=== PATIENT | male | born 1985 | race Asian ===

== ENCOUNTER 2016-10-12 16:30 | Emergency (ER) | payer OTHER ==
[2016-10-12] MEDS ORDERED: NORMAL SALINE 1000 ML 1,000 ML IV ONE (17:24)
[2016-10-12 17:52] LABS: ABSOLUTE EOSINOPHILS # (AUTO) 0.1 10^3/uL (0.0-0.6); ABSOLUTE LYMPHOCYTES (AUTO) 1.3 10^3/uL (0.5-4.7); ABSOLUTE MONOCYTES (AUTO) 0.6 10^3/uL (0.1-1.4); ABSOLUTE NEUT (AUTO) 8.5 10^3/uL (1.7-8.2); BASOPHILS % (AUTO) 0.2 % (0-2); EOSINOPHILS % (AUTO) 0.5 % (0-6); HEMATOCRIT 44.6 % (37.9-51.0); HEMOGLOBIN 14.7 g/dL (13.5-17.0); HGB HCT DIFFERENCE -0.5; LYMPHOCYTES % (AUTO) 12.6 % (13-45); MEAN CORPUSCULAR HEMOGLOBIN 27.8 pg (27.0-33.4); MEAN CORPUSCULAR HGB CONC 32.9 g/dL (32.0-36.0); MEAN CORPUSCULAR VOLUME 84 fl (80-97); MONOCYTES % (AUTO) 5.5 % (3-13); RED BLOOD COUNT 5.29 10^6/uL (4.35-5.55); RED CELL DISTRIBUTION WIDTH 13.8 % (11.5-14.0); SEGMENTED NEUTROPHILS % (AUTO) 81.2 % (42-78); WHITE BLOOD COUNT 10.5 10^3/uL (4.0-10.5)
[2016-10-12 18:02] LABS: ALANINE AMINOTRANSFERASE 27 U/L (21-72); ALBUMIN 4.6 g/dL (3.5-5.0); ALCOHOL 21 mg/dL (NONE DETECTED); ALKALINE PHOSPHATASE 44 U/L (38-126); ANION GAP 16 (5-19); ASPARTATE AMINO TRANSFERASE 18 U/L (17-59); BILIRUBIN,DIRECT 0.3 mg/dL (0.0-0.4); BILIRUBIN,TOTAL 0.4 mg/dL (0.2-1.3); BLOOD UREA NITROGEN 16 mg/dL (7-20); CALCIUM 9.7 mg/dL (8.4-10.2); CARBON DIOXIDE 22 mmol/L (22-30); CHLORIDE 105 mmol/L (98-107); CREATININE RESULT 1.05 mg/dL (0.52-1.25); GLUCOSE 107 mg/dL (75-110); MAGNESIUM 1.9 mg/dL (1.6-2.3); POTASSIUM 4.3 mmol/L (3.6-5.0); SODIUM 142.9 mmol/L (137-145); TOTAL PROTEIN 7.2 g/dL (6.3-8.2)
[2016-10-12 18:29] LABS: APPEARANCE,URINE CLEAR; BILIRUBIN,URINE NEGATIVE (NEGATIVE); GLUCOSE, URINE NEGATIVE (NEGATIVE); KETONES,URINE NEGATIVE (NEGATIVE); LEUKOCYTE ESTERASE,URINE NEGATIVE (NEGATIVE); NITRITE,URINE NEGATIVE (NEGATIVE); PROTEIN,URINE NEGATIVE (NEGATIVE); URINE SPECIFIC GRAVITY 1.016; UROBILINOGEN,URINE NEGATIVE mg/dL (<2.0)
[2016-10-12 18:40] LABS: URINE BARBITURATES SCREEN NEGATIVE; URINE METHADONE SCREEN NEGATIVE; URINE OPIATES LOW NEGATIVE; URINE PHENCYCLIDINE SCREEN NEGATIVE
--- NOTE | 2016-10-12 20:12 | ER Document Report ---
ED General - General Chief Complaint: Probable Seizure Stated Complaint: SEIZURES Mode of Arrival: Medic Information source: Patient, Emergency Med Personnel, [facility] Records Notes: This is a 31-year-old male with a prior history of seizure disorder who presents via EMS after having a witnessed seizure. Patient admits to drinking "a large beer" today. Patient states he was walking home from a friend's house when he was noted by bystanders to have what is described as a generalized tonic clonic seizure, self-limited. EMS was notified. No bowel or bladder incontinence. Pt is at his baseline mental status upon arrival to the ER and states that he feels fine. He reports compliance with his antiepileptic medications which include Vimpat and Lamotrigene. His neurologist is Dr. Hoffman and he has an appointment next week scheduled. He denies any recent fevers or chills. He denies any headache or injury. He states that he has seizures once or twice a month and his last seizure was about a week ago. He reports no recent changes in his seizure medication or dose and reports compliance. - Related Data Allergies/Adverse Reactions: No Known Allergies Allergy (Unverified 05/08/12 21:49) Home Medications: Current Home Medications Fenofibrate Nanocrystallized [Tricor] 145 mg PO DAILY 10/12/16 [History] Lacosamide [Vimpat] 200 mg PO BID 10/12/16 [History] Lisinopril [Lisinopril] 20 mg PO DAILY 10/12/16 [History] Past Medical History - General Information source: Patient - Social History Smoking Status: Current Every Day Smoker Chew tobacco use (# tins/day): No Frequency of alcohol use: None Drug Abuse: None Family History: Reviewed & Not Pertinent Neurological Medical History: Reports: Hx Seizures - Immunizations Hx Diphtheria, Pertussis, Tetanus Vaccination: No Review of Systems - Review of Systems Notes: REVIEW OF SYSTEMS: CONSTITUTIONAL : Denies fever, chills, or sweats. Denies recent illness. EENT: Denies eye, ear, throat, or mouth pain or symptoms. Denies nasal or sinus congestion. CARDIOVASCULAR: Denies chest pain. RESPIRATORY: Denies cough, cold, or chest congestion. Denies shortness of breath, difficulty breathing, or wheezing. GASTROINTESTINAL: Denies abdominal pain. Denies nausea, vomiting, or diarrhea. GENITOURINARY: Denies difficulty urinating, painful urination, burning, frequency, or blood in urine. MUSCULOSKELETAL: Denies neck or back pain or joint pain or swelling. SKIN: Denies rash or skin lesions. HEMATOLOGIC : Denies easy bruising or bleeding. LYMPHATIC: Denies swollen, enlarged glands. NEUROLOGICAL: As per history of present illness PSYCHIATRIC: Denies anxiety or stress or depression. ALL OTHER SYSTEMS REVIEWED AND NEGATIVE. Physical Exam - Vital signs Vitals: Resp Pulse Ox 37 H 95 10/12/16 16:41 10/12/16 16:41 - Notes Notes: PHYSICAL EXAMINATION: GENERAL: Well-appearing, well-nourished and in no acute distress. HEAD: Atraumatic, normocephalic. EYES: Pupils equal round and reactive to light, extraocular movements intact, sclera anicteric, conjunctiva are normal. ENT: nares patent, oropharynx clear without exudates. Moist mucous membranes. NECK: Normal range of motion, supple without lymphadenopathy LUNGS: Breath sounds clear to auscultation bilaterally and equal. No wheezes rales or rhonchi. HEART: Regular rate and rhythm without murmurs ABDOMEN: Soft, nontender, normoactive bowel sounds. No guarding, no rebound. No masses appreciated. EXTREMITIES: Normal range of motion, no pitting or edema. No cyanosis. NEUROLOGICAL: Cranial nerves grossly intact. Motor strength +5/5 bilateral upper and lower extremities. Sensation intact. PSYCH: Normal mood, normal affect. SKIN: Warm, Dry, normal turgor, no rashes or lesions noted. Course - Re-evaluation Re-evalutation: 10/12/16 20:17 Patient has remained hemodynamically stable in the emergency department and asymptomatic. Heart rate now 95-105. Respiratory rate 23. He states he feels fine and would like to go home. I did attempt to page his neurologist however his neurologist is normal call tonight and was not able to get hold of him. This time patient is appropriate for discharge as he does have a appointment with his neurologist this coming week. Strict return precautions were discussed and both the patient and his mother were comfortable with this plan. - Vital Signs Vital signs: Temp Pulse Resp BP Pulse Ox 98.4 F 140 H 23 H 125/80 91 L 10/12/16 16:53 10/12/16 16:53 10/12/16 21:01 10/12/16 21:01 10/12/16 21:01 - Laboratory Result Diagrams: 10/12/16 16:40 10/12/16 16:40 Laboratory results interpreted by me: 10/12/16 16:40 Seg Neutrophils % 81.2 H Lymphocytes % 12.6 L Absolute Neutrophils 8.5 H - Diagnostic Test Radiology reviewed: Reports reviewed - CXR negative - EKG Interpretation by Me EKG shows normal: Sinus rhythm Rate: Tachycardia Rhythm: NSR When compared to previous EKG there are: No significant change Additional EKG results interpreted by me: 10/12/16 20:45 EKG at 1645 demonstrates sinus tachycardia with a rate of 119. There is a nonspecific interventricular conduction delay. No ST segment elevation or depression. No significant change from prior EKG. Discharge - Discharge Clinical Impression: Seizure disorder, Alcohol use Condition: Stable Disposition: HOME, SELF-CARE Additional Instructions: Seizure, Known Epileptic You have had a seizure. Seizures may "break through" in an epileptic due to stress of infection or injury, a change in blood chemistry, or drug and alcohol use. Another common cause is failure to take medication as prescribed. Your doctor has evaluated your situation for the likely cause of this seizure. It is important that you follow his advice concerning any medication changes and follow-up care. Further testing of anti-seizure medication levels in your blood may be necessary. If you have a driver starting gate's license, it's important that you DO NOT DRIVE until given permission by your physician. This seizure must be reported to the driver starting gate 's license bureau. Call the doctor or return if seizures recur, or if new or unusual symptoms arise -- such as severe headache, confusion, excessive sleepiness, local weakness or numbness, neck stiffness, or fever. As discussed, follow-up with your neurologist as scheduled next week. Abstain from any alcohol use or drug use. Return to the emergency department for fever , worsening symptoms or concerns.
--- NOTE | 2016-10-12 21:53 | EKG REPORT ---
SEVERITY:- ABNORMAL ECG - SINUS TACHYCARDIA NONSPECIFIC INTRAVENTRICULAR CONDUCTION DELAY : Confirmed by: Estela Wright MD 12-Oct-2016 21:51:04
[2016-10-12 21:54] VITALS: BP 125/80
== END 2016-10-12 21:55 | disposition home or self-care (01) ==
LOC: ER 16:30
DX: G40.909 Epilepsy, unspecified, not intractable, without status epilepticus (principal); Z72.89 Other problems related to lifestyle; F17.200 Nicotine dependence, unspecified, uncomplicated
CPT/HCPCS: 93005; 99284; 96360; 36415; 82962; 80307 ×2; 83735; 85025; 80053; 80175; 81001; 71010; 93010; J7030